=== PATIENT | female | born 1970 | race Caucasian/White ===

== ENCOUNTER 2018-05-24 13:30 | Emergency (ER) | payer SELFPAY ==
[~2018-05-24] VITALS: Wt 81.3 kg
[2018-05-24] MEDS ORDERED: SOD CHLORIDE 0.9% 1,000 ML IV STA (16:35)
[2018-05-24] MEDS ORDERED: KETOROLAC 15 MG INJ IV STA (16:35)
[2018-05-24] MEDS ORDERED: ONDANSETRON 4 MG INJ IV STA (16:35)
[2018-05-24] MEDS ORDERED: ACETAMINOPHEN 325 MG TAB PO ONE (17:00)
[2018-05-24] MEDS ORDERED: SOD CHLORIDE 0.9% 1,000 ML IV ONE (18:07)
[2018-05-24] MEDS ORDERED: CEFTRIAXONE 1 GM/50 ML (PMX) 50 ML IVPB ONE (18:30)
[2018-05-24 19:36] VITALS: BP 109/62; PULSE 86; RESP 18
[2018-05-24] MEDS ORDERED: ONDA8TAB14 PO (19:53)
[2018-05-24] MEDS ORDERED: ACET500C5 PO (19:53)
[2018-05-24] MEDS ORDERED: CIPR500T4 PO (19:53)
--- NOTE | 2018-05-24 19:56 | ERD ---
ER Documentation Chief Complaint Chief Complaint R SIDED FLANK PAIN HPI 47-year-old female presents with fever and right flank pain for last 3 days. She has nausea but no vomiting. She denies urinary complaints. She has a history of kidney infections. ROS All systems reviewed and are negative except as per history of present illness. 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 Neck: Full range of motion. No meningismus. Resp: Clear to auscultation bilaterally Cardio: Regular rate and rhythm, no murmurs Abd: Soft, non tender, non distended. Normal bowel sounds Skin: No petechiae or rashes Back: No midline tenderness. Mild flank tenderness Ext: No cyanosis, or edema Neur: Awake and alert Psych: Normal Mood and Affect Result Diagram: 05/24/18 1646 05/24/18 1646 Results 24 hrs Laboratory Tests Test 05/24/18 16:46 05/24/18 17:01 White Blood Count 15.9 10^3/ul Red Blood Count 4.11 10^6/ul Hemoglobin 9.8 g/dl Hematocrit 31.1 % Mean Corpuscular Volume 75.7 fl Mean Corpuscular Hemoglobin 23.8 pg Mean Corpuscular Hemoglobin Concent 31.5 g/dl Red Cell Distribution Width 15.7 % Platelet Count 299 10^3/UL Mean Platelet Volume 9.0 fl Immature Granulocytes % 0.600 % Neutrophils % 73.4 % Lymphocytes % 15.6 % Monocytes % 10.0 % Eosinophils % 0.0 % Basophils % 0.4 % Nucleated Red Blood Cells % 0.0 /100WBC Immature Granulocytes # 0.100 10^3/ul Neutrophils # 11.6 10^3/ul Lymphocytes # 2.5 10^3/ul Monocytes # 1.6 10^3/ul Eosinophils # 0.0 10^3/ul Basophils # 0.1 10^3/ul Nucleated Red Blood Cells # 0.0 10^3/ul Urine Color WALE Urine Clarity CLOUDY Urine pH 5 Urine Specific [place] 1.020 Urine Ketones NEGATIVE mg/dL Urine Nitrite POSITIVE mg/dL Urine Bilirubin NEGATIVE mg/dL Urine Urobilinogen 0.2 E.U./dL mg/dL Urine Leukocyte Esterase 3+ [place]/ul Urine Microscopic RBC 8 /HPF Urine Microscopic WBC 126 /HPF Urine Squamous Epithelial Cells MANY /HPF Urine Bacteria MANY /HPF Urine Mucus MODERATE /HPF Urine Hemoglobin 3+ mg/dL Urine Glucose NEGATIVE mg/dL Urine Total Protein 2+ mg/dl Sodium Level 135 mmol/L Potassium Level 3.8 mmol/L Chloride Level 96 mmol/L Carbon Dioxide Level 27 mmol/L Anion Gap 12 Blood Urea Nitrogen 11 mg/dl Creatinine 1.42 mg/dl Est Glomerular Filtrat Rate mL/min 40 mL/min Glucose Level 111 mg/dl Calcium Level 8.9 mg/dl Total Bilirubin 0.3 mg/dl Direct Bilirubin 0.00 mg/dl Indirect Bilirubin 0.3 mg/dl Aspartate Amino Transf (AST/SGOT) 23 IU/L Alanine Aminotransferase (ALT/SGPT) 11 IU/L Alkaline Phosphatase 80 IU/L Total Protein 8.2 g/dl Albumin 4.3 g/dl Globulin 3.90 g/dl Albumin/Globulin Ratio 1.10 Lipase 58 U/L POC Beta HCG, Qualitative NEGATIVE Current Medications Medications Dose Sig/Dustin Start Time Status Last (Trade) Ordered Route PRN Stop Time Admin Dose Reason Admin Sodium 1,000 ml @ Q1H STAT 05/24/18 DC 05/24/18 Chloride 1,000 mls/hr IV 16:35 05/24/18 16:52 17:34 Ondansetron 4 mg ONCE STAT 05/24/18 DC 05/24/18 HCl (Zofran IV 16:35 05/24/18 16:53 Inj) 16:36 Ketorolac 15 mg ONCE STAT 05/24/18 DC 05/24/18 Tromethamine IV 16:35 05/24/18 16:53 (Toradol) 16:36 650 mg ONCE ONCE 05/24/18 DC 05/24/18 Acetaminophen PO 17:00 05/24/18 16:52 (Tylenol 17:01 Tab) Ceftriaxone 50 ml @ ONCE ONCE 05/24/18 DC 05/24/18 Sodium 100 mls/hr IVPB 18:30 05/24/18 18:39 18:59 Sodium 1,000 ml @ Q0M ONCE 05/24/18 DC 05/24/18 Chloride 0 mls/hr IV 18:07 05/24/18 18:40 18:15 Procedures/MDM Patient presents with fever and right flank pain. IV was obtained. She was given 2 L of saline as IV. CBC shows leukocytosis. Hemoglobin is 9. There is a slight elevation of creatinine. Chloride 96. Urine shows signs of infection and sent for culture. Patient was given Rocephin 1 g IV, Zofran 4 mill grams IV, Toradol 30 mg IV. Fever defervesced as well as tachycardia patient felt better after observation treatment. Patient presents with signs and symptoms of pyelonephritis. There is no signs of surgical abdomen. Renal ultrasound shows no hydronephrosis. Patient will be treated with Cipro, fluids, fever control, primary care follow-up and return precautions. She should return for vomiting, persistent fevers, worsening pain, new worsening symptoms with primary doctor t his week. The patient was stable with no new complaints during the ER course. Clinically, there is no current evidence to suggest meningitis, sepsis, acute abdomen, pneumonia, stroke, acute coronary syndrome, pulmonary embolism, aortic dissection or any other emergent condition appearing to require further evaluation or hospitalization. Patient counseled regarding my diagnostic impression and care plan. Prior to discharge all questions answered. Pt agrees with treatment plan and understands strict return precautions. Pt is instructed to follow up with primary care provider within 24-48 hours. Precautionary instructions provided including instructions to return to the ER if not improving or for any worsening or changing symptoms or concerns. Departure Diagnosis: Primary Impression: Pyelonephritis Condition: Stable Patient Instructions: Pyelonephritis, Female (Adult) Additional Instructions: Examinations of kidney infection today. Drink plenty of fluids at home. Recheck for worsening fevers, vomiting, pain, new worsening symptoms. DIANA MAN MD May 24, 2018 19:56
== END 2018-05-24 20:14 | disposition home or self-care (01) ==
LOC: FTE 13:30
DX: N12 Tubulo-interstitial nephritis, not specified as acute or chronic (principal)
CPT/HCPCS: 76775; 80053; 81001; 81025; 83690; 85025; 87086; J0696; J1885; J2405; J7030; 36415; 96365; 96375

== ENCOUNTER 2018-10-01 12:49 | Emergency (ER) | payer OTHER ==
[~2018-10-01] VITALS: Ht 162.6 cm; Wt 81.7 kg
[~2018-10-01 12:49] MED LIST: ACET500C5 PO; CIPR500T4 PO; ONDA8TAB14 PO
[2018-10-01 13:06] VITALS: Ht 162.6 cm; Wt 81.7 kg
[2018-10-01] MEDS ORDERED: SOD CHLORIDE 0.9% 1,000 ML IV STA (15:19)
[2018-10-01] MEDS ORDERED: ONDANSETRON 4 MG INJ IV STA (15:46)
[2018-10-01] MEDS ORDERED: morphine 4 MG/ML VIAL IV STA ×2 (15:46→17:42)
--- NOTE | 2018-10-01 15:46 | ERD ---
ER Documentation Chief Complaint Chief Complaint mid abdominal pain with N/V and diarhea x2 days HPI 47-year-old female presenting with 3 days of right lower quadrant abdominal pain that is throbbing, radiating to her right upper quadrant. She has had associated nausea, vomiting, fevers and chills. She has also had some loose sto ols for the past 2 days. She has somewhat abnormal vaginal discharge but no bleeding. Pain is throbbing, 10 out of 10, worsened with any type of movement. No alleviating factors. She does endorse having unprotected sex about 1 month ago. ROS All systems reviewed and are negative except as per history of present illness. Medications Home Meds Discontinued Scripts Ondansetron (Ondansetron Odt) 8 Mg Tab.rapdis, 8 MG PO Q6H PRN for NAUSEA AND/OR VOMITING, #8 TAB Prov:DIANA MAN MD 05/24/18 Ciprofloxacin Hcl* (Ciprofloxacin Hcl*) 500 Mg Tablet, 500 MG PO BID for 10 Days, TAB Prov:DIANA MAN MD 05/24/18 Acetaminophen* (Tylophen*) 500 Mg Capsule, 1 CAP PO Q6H PRN for PAIN AND OR ELEVATED TEMP, #20 CAP Prov:DIANA MAN MD 05/24/18 Allergies Allergies: Coded Allergies: No Known Allergy (Unverified , 10/01/18) PMhx/Soc History of Surgery: Yes (Cholecystectomy, tubal ligation) Hx Miscellaneous Medical Probl: Yes (RIGHT SIDE SMALL KIDNEY, H. pylori, gastritis) Hx Alcohol Use: No Hx Substance Use: No Hx Tobacco Use: No FmHx Family History: No diabetes Physical Exam Vitals Vital Signs Date Temp Pulse Resp B/P (MAP) Pulse Ox O2 O2 Flow FiO2 Time Delivery Rate 10/01/18 99.0 93 16 109/55 97 Room Air 19:47 (73) 10/01/18 87 18 125/76 97 Room Air 17:51 (92) 10/01/18 86 18 136/74 100 Room Air 16:11 (94) 10/01/18 100.2 112 20 161/77 99 13:06 (105) Physical Exam Const: No acute distress, nontoxic Head: Atraumatic Eyes: Normal Conjunctiva ENT: Normal External Ears, Nose and Mouth. Neck: Full range of motion. No meningismus. Resp: Clear to auscultation bilaterally Cardio: Tachycardic with regular rhythm, no murmurs Abd: Soft, tender to palpation in the right lower quadrant no rebound or guarding. No right upper quadrant tenderness. Pelvic Exam: [employer] Plater present External Genitalia: Normal Skin Speculum: Normal vaginal mucosa, + cervical discharge Bimanual: No adnexal masses or tenderness, + CMT. Skin: No petechiae or rashes Back: No midline or flank tenderness Ext: No cyanosis, or edema Neur: Awake and alert Psych: Normal Mood and Affect Result Diagram: 10/01/18 1554 10/01/18 1554 Results 24 hrs Laboratory Tests Test 10/01/18 15:53 10/01/18 15:54 POC Venous Lactate 1.4 mmol/L White Blood Count 17.0 10^3/ul Red Blood Count 3.86 10^6/ul Hemoglobin 8.6 g/dl Hematocrit 27.8 % Mean Corpuscular Volume 72.0 fl Mean Corpuscular Hemoglobin 22.3 pg Mean Corpuscular Hemoglobin Concent 30.9 g/dl Red Cell Distribution Width 16.6 % Platelet Count 397 10^3/UL Mean Platelet Volume 9.6 fl Immature Granulocytes % 0.500 % Neutrophils % 71.9 % Lymphocytes % 17.2 % Monocytes % 9.8 % Eosinophils % 0.2 % Basophils % 0.4 % Nucleated Red Blood Cells % 0.0 /100WBC Immature Granulocytes # 0.090 10^3/ul Neutrophils # 12.2 10^3/ul Lymphocytes # 2.9 10^3/ul Monocytes # 1.7 10^3/ul Eosinophils # 0.0 10^3/ul Basophils # 0.1 10^3/ul Nucleated Red Blood Cells # 0.0 10^3/ul Urine Color WALE Urine Clarity CLOUDY Urine pH 5.0 Urine Specific [place] 1.019 Urine Ketones NEGATIVE mg/dL Urine Nitrite NEGATIVE mg/dL Urine Bilirubin NEGATIVE mg/dL Urine Urobilinogen NEGATIVE mg/dL Urine Leukocyte Esterase 2+ [place]/ul Urine Microscopic RBC 8 /HPF Urine Microscopic WBC 40 /HPF Urine Squamous Epithelial Cells MANY /HPF Urine Bacteria FEW /HPF Urine Mucus FEW /HPF Urine Hemoglobin 1+ mg/dL Urine Glucose NEGATIVE mg/dL Urine Total Protein 2+ mg/dl Sodium Level 138 mmol/L Potassium Level 3.6 mmol/L Chloride Level 102 mmol/L Carbon Dioxide Level 24 mmol/L Anion Gap 12 Blood Urea Nitrogen 8 mg/dl Creatinine 1.39 mg/dl Est Glomerular Filtrat Rate mL/min 41 mL/min Glucose Level 108 mg/dl Calcium Level 9.1 mg/dl Total Bilirubin 0.6 mg/dl Direct Bilirubin 0.00 mg/dl Indirect Bilirubin 0.6 mg/dl Aspartate Amino Transf (AST/SGOT) 21 IU/L Alanine Aminotransferase (ALT/SGPT) 20 IU/L Alkaline Phosphatase 91 IU/L Total Protein 8.7 g/dl Albumin 4.3 g/dl Globulin 4.40 g/dl Albumin/Globulin Ratio 0.97 Lipase 88 U/L Serum HCG, Qualitative NEGATIVE Current Medications Medications Dose Sig/Dustin Start Time Status Last (Trade) Ordered Route PRN Stop Time Admin Dose Reason Admin Sodium 1,000 ml @ Q1H STAT 10/01/18 DC 10/01/18 Chloride 1,000 mls/hr IV 15:19 15:58 10/01/18 16:18 Morphine 4 mg ONCE STAT 10/01/18 DC 10/01/18 Sulfate IV 15:46 15:57 (morphine) 10/01/18 15:47 Ondansetron 4 mg ONCE STAT 10/01/18 DC 10/01/18 HCl (Zofran IV 15:46 15:57 Inj) 10/01/18 15:47 Morphine 4 mg ONCE STAT 10/01/18 DC 10/01/18 Sulfate IV 17:42 17:55 (morphine) 10/01/18 17:46 Cefepime HCl 50 ml @ ONCE STAT 10/01/18 DC 10/01/18 100 mls/hr IVPB 17:42 17:55 10/01/18 18:11 Doxycycline 100 mg ONCE ONCE 10/01/18 DC 10/01/18 Hyclate PO 18:00 19:28 (Vibramycin) 10/01/18 18:01 500 mg ONCE ONCE 10/01/18 Metronidazole PO 20:30 (Flagyl) 10/01/18 20:31 Procedures/MDM EMERGENT LABS AND DIAGNOSTIC STUDIES: Lab Results above were reviewed and interpreted by me. CBC: Leukocytosis, concerning for infection. Anemia CMP: Elevated creatinine, at patient's baseline. No evidence of clinically significant electrolyte abnormality, acidosis, renal failure, hypoglycemia, liver disease, or biliary obstruction Wet mount positive for clue cells Lactate within normal limits without evidence of sepsis or tissue hypoperfusion UA: Evidence of possible infection Radiology Results as interpreted by Radiology below were reviewed by Rae Ureña MD: Ultrasound of the pelvis not show any acute abnormalities. Fibroid noted. CT abdomen and pelvis: IMPRESSION: 1. The right kidney is atrophic. There are several sub-centimeter hypodense lesions throughout the bilateral kidneys. The largest is likely a 1 cm cyst arising from the lower pole of the left kidney. There is bilateral renal scarring. There is mild bilateral hydronephrosis. 2. There is an enlarged fibroid uterus. There is a 2.4 cm left adnexal soft tissue lesion. Follow-up ultrasound recommended exclude endometrioma, hemorrhagic cyst, or neoplasm. 3. Status post cholecystectomy with associated postsurgical changes. Initial Nursing notes reviewed. Previous Medical Records requested via the Electronic Health Record. EMERGENCY DEPARTMENT COURSE / MEDICAL DECISION MAKING: Patient is presenting with right lower quadrant abdominal pain. Differential includes but is not limited to appendicitis, colitis, ureterolithiasis, pyelonephritis, UTI among other etiologies. Labs showed evidence of leukocytosis, concerning for infection. CT was done and did not show any evidence of appendicitis or any other significant abnormalities that would explain the patient's pain. She did have a left adnexal mass but that is not the location of her pain. For this reason a pelvic exam was done and showed evidence of possible PID. She also has evidence of Gardnerella infection. She was treated with broad-spectrum antibiotics as well as metronidazole. At this time, I feel the patient would benefit from admission, observation, and source control. She may have a UTI but has no symptoms of a UTI. I do not believe that this is a source. I spoke with [facility]. Patient is stable for transfer. They will arrange for transfer. Authorization #[id number] Departure Diagnosis: Primary Impression: Abdominal pain Abdominal location: right lower quadrant Qualified Codes: R10.31 - Right lower quadrant pain Additional Impressions: Sepsis Sepsis type: sepsis due to unspecified organism Qualified Codes: A41.9 - Sepsis, unspecified organism Bacterial vaginosis Condition: IVONNE Jurado MD Oct 01, 2018 15:46
[2018-10-01] MEDS ORDERED: CEFEPIME 2GM/50 ML (PMX) 50 ML IVPB STA (17:42)
[2018-10-01] MEDS ORDERED: DOXYCYCLINE 100 MG TAB PO ONE (18:00)
[2018-10-01] MEDS ORDERED: metroNIDAZOLE 500 MG TAB PO ONE (20:30)
[2018-10-01 20:51] VITALS: BP 103/56; PULSE 88; RESP 16
== END 2018-10-01 21:16 | disposition short-term general hospital (02) ==
LOC: E/R 12:49
DX: A41.9 Sepsis, unspecified organism (principal); N76.0 Acute vaginitis
CPT/HCPCS: 74176; 76830; 76856; 80053; 81001; 83605; 83690; 84703; 85025; 87040; 87086; 87210; 87591; J0692; J2270; J2405; J7030; 36415; 96374; 96375; 96376